=== PATIENT | female | born 1955 | race Caucasian/White ===

== ENCOUNTER 2024-05-18 12:07 | Outpatient (CLI) | payer OTHER ==
--- NOTE | 2024-05-27 16:06 | Mammography Report ---
BILATERAL DIGITAL SCREENING MAMMOGRAM 3D/2D: 05/18/2024 CLINICAL: Routine screening. No prior exams were available for comparison. The breasts are heterogeneously dense, which may obscure small masses (category c / 51-75% glandular tissue). No significant masses, calcifications, or other findings are seen in either breast. IMPRESSION: NEGATIVE There is no mammographic evidence of malignancy. A 1 year screening mammogram is recommended. Based on the Tyrer Cuzick model (a risk assessment model) the patient's lifetime risk is 9.7% and her 10 year risk is 5.1%. According to the ACR, ACS, and NCCN guidelines, an annual breast MRI exam delicia g with mammogram is recommended if the patient's lifetime risk is 20% or greater. This exam was interpreted at Station ID: [id number]. NOTE: For mammograms, a report in lay terms will be sent to the patient. Approximately 15% of breast malignancies will not be visualized mammographically. In the management of a palpable breast mass, a negative mammogram must not discourage biopsy of a clinically suspicious lesion. Electronically Signed By: Aidan dumont/hattie:05/27/2024 14:52:41 letter sent: No_Letter ACR BI-RADS Category 1: Negative PARENCHYMAL PATTERN: (D) - The breast(s) demonstrate(s) heterogeneously dense fibroglandular earl burdick. BI-RADS CATEGORY: (1) - 1 RECOMMENDATION: (ANNUAL) - Recommend routine annual screening mammography. [id number] 1 year screening LATERALITY: (B)
== END 2024-05-18 12:08 | disposition home or self-care (01) ==
LOC: DI.N 12:07
DX: Z12.31 Encounter for screening mammogram for malignant neoplasm of breast (principal); R92.333 Mammographic heterogeneous density, bilateral breasts